=== PATIENT | female | born 1995 | race Caucasian/White ===

== ENCOUNTER 2017-03-07 15:25 | Inpatient (IN) | payer MEDICAID ==
[~2017-03-07] VITALS: Ht 161.3 cm; Wt 66.3 kg
--- NOTE | ~2017-03-07 | OR ---
PATIENT'S NAME: LIBBY CACERES [facility] AGE: 22 Y [address] ROOM: [place] [address] LOCATION: GO ADMIT DATE: 03/07/2017 OR/Procedure Report DISCHARGE DATE: FAMILY PHYSICIAN: Chelsea Aguirre MD ATTENDING PHYSICIAN: Chelsea Aguirre SURGEON: Ana Frausto MD ELEMENTARY EDUCATION TUTOR: Chelsea Aguirre MD. DATE OF PROCEDURE: 03/07/2017 PREOPERATIVE DIAGNOSES: 1. Intrauterine at 36 weeks. 2. Labor. 3. Prior section. POSTOPERATIVE DIAGNOSES: 1. Intrauterine at 36 weeks. 2. Labor. 3. Prior section. PROCEDURE: Repeat low transverse section. ANESTHESIA: Spinal. ESTIMATED BLOOD LOSS: 500 mL. COMPLICATIONS: None. DESCRIPTION OF PROCEDURE: The patient was taken to the operating room and placed under spinal anesthetic. She was prepped and draped in the usual sterile standard fashion. A Pfannenstiel skin incision was made with the knife and carried down to the level of fascia. The fascia was nicked in the midline. The incision was carried out laterally. The fascia was sharply and bluntly dissected from the underlying rectus muscles. The peritoneum was opened sharply and incised and stretched. The bladder blade was placed. The bladder reflection is taken down sharply and placed behind the bladder blade. A low transverse uterine incision was made with a knife and carried out laterally with the hemming and tacking machine operator's fingers. The bag of water was ruptured and found to be clear. The vertex was delivered over the uterine incision. There is some difficulty just getting past the fascial scarring. Shoulders and body are delivered. Baby boy lets out a spontaneous cry. His cord was doubly clamped and cut. He was handed off to the warmer. A 3-vessel cord was noted. Venous cord blood samples collected. Placenta delivered manually and intact. The uterus was exteriorized. Tubes and ovaries looked normal. The uterine incision was closed in a running locking stitch of 0 chromic. A second imbricating stitch was performed. Peritoneum was closed with 2-0 Vicryl, 0 PATIENT'S NAME: LIBBY CACERES [facility] AGE: 22 Y [address] ROOM: [place] [address] LOCATION: [facility] ADMIT DATE: 03/07/2017 OR/Procedure Report DISCHARGE DATE: FAMILY PHYSICIAN: Chelsea Aguirre MD ATTENDING PHYSICIAN: Chelsea Aguirre Vicryl was used to close the fascia, and 4-0 Vicryl was used to close the skin. Steri-Strips and benzoin were placed. The patient tolerated the procedure well and went to recovery in stable condition. ANA FRAUSTO MD KHP/modl /[id number] P d: 03/08/17 0327 t: 03/15/17 0504, OPERATIVE SUMMARY
--- NOTE | ~2017-03-07 | DS ---
PATIENT'S NAME: LIBBY CACERES [facility] AGE: 22 Y [address] ROOM: [place] [address] LOCATION: GOBS ADMIT DATE: 03/07/2017 Discharge Summary DISCHARGE DATE: 03/10/2017 FAMILY PHYSICIAN: Chelsea Aguirre MD ATTENDING PHYSICIAN: Chelsea Aguirre HISTORY: This is a 22-year-old, 2, para 1, who presents at 36 weeks gestation with contractions. Per Dr. Aguirre's check, she changed from 0 to 1 cm. She is a repeat , so we will proceed with repeat section. HOSPITAL COURSE: The patient was taken to the operating room and a repeat low transverse section was performed. Following surgery, the patient did well. On postop day #1, she is up and around, her hemoglobin is stable. On postop day #2, the patient desires discharge. Will be sent home with Percocet and Motrin for pain. Precautions are reviewed. MD JORDAN POWERP/modl /[id number] d: 03/15/17 0556 t: 04/10/17 0857, DISCHARGE SUMMARY
--- NOTE | ~2017-03-07 | CON ---
PATIENT'S NAME: LIBBY CACERES [facility] AGE: 22 Y [address] ROOM: [facility] [place], [place] [address] LOCATION: [facility] ADMIT DATE: 03/07/2017 Consultation DISCHARGE DATE: FAMILY PHYSICIAN: Chelsea Aguirre MD ATTENDING PHYSICIAN: Chelsea Aguirre REFERRING PHYSICIAN: Ana Frausto MD This is a 22-year-old 2, para 1 who presents with contractions at 36 weeks plus days. She had a prior section. Per Dr. Aguirre's check and evaluation, she was belén and she changed from [address] Aguirre felt it was appropriate to move ahead with section for labor and changing cervix. I discussed risks and benefits of the section with the patient including risks of prematurity. Consents had already been signed in the office with Dr. Wheatley. ANA FRAUSTO MD KHP/modl /[id number] d: 03/08/17316 t: 03/15/17 0501, CONSULTATION REPORT
[2017-03-07] MEDS ORDERED: VALTREX1000 MG PO (17:21)
[2017-03-07] MEDS ORDERED: ZOVIRAX200 MG PO (17:22)
[2017-03-07] MEDS ORDERED: PRENATAL 1+1)(P1 TAB PO (17:22)
[2017-03-07 18:55] LABS: BASOPHIL # 0.1 K/uL (0.0-0.2); BASOPHIL % 0.4 %; EOSINOPHIL % 0.2 %; HEMATOCRIT 32.1 % (33.0-46.0); HEMOGLOBIN 11.1 g/dL (11.0-15.0); IMMATURE GRANULOCYTE # 0.1 K/uL (0.0-0.3); IMMATURE GRANULOCYTE % 0.5 %; LYMPHOCYTE # 2.4 K/uL (0.8-4.0); LYMPHOCYTE % 18.2 %; MCH 31.5 pg (27.0-34.0); MCHC 34.6 gm/dL (32.0-36.5); MCV 91.2 fl (83.0-98.0); MONOCYTE # 0.7 K/uL (0.0-1.0); MONOCYTE % 5.4 %; MPV 11.2 fl (9.4-12.4); NEUTROPHIL # (ANC) 9.8 K/uL (1.8-7.8); NEUTROPHIL % 75.3 %; NRBC % 0 /100WBC (0-0.00); PLATELET COUNT 144 K/uL (150-450); RBC 3.52 M/uL (3.50-5.00); RDW-CV 13.1 % (11.9-14.6)
[2017-03-08 05:04] LABS: BASOPHIL % 0.2 %; HEMATOCRIT 28.6 % (33.0-46.0); HEMOGLOBIN 9.9 g/dL (11.0-15.0); IMMATURE GRANULOCYTE # 0.2 K/uL (0.0-0.3); IMMATURE GRANULOCYTE % 0.8 %; LYMPHOCYTE # 1.7 K/uL (0.8-4.0); LYMPHOCYTE % 8.9 %; MCH 31.7 pg (27.0-34.0); MCHC 34.6 gm/dL (32.0-36.5); MCV 91.7 fl (83.0-98.0); MONOCYTE # 0.8 K/uL (0.0-1.0); MONOCYTE % 3.9 %; MPV 11.2 fl (9.4-12.4); NEUTROPHIL # (ANC) 16.4 K/uL (1.8-7.8); NEUTROPHIL % 86.2 %; NRBC % 0 /100WBC (0-0.00); PLATELET COUNT 159 K/uL (150-450); RBC 3.12 M/uL (3.50-5.00)
[2017-03-08 05:08] LABS: WBC 19.1 K/uL (4.0-11.0)
--- NOTE | 2017-03-08 05:55 | NUR ---
Significant Event: VSS. pecocet last given at 0600; last dose of toradol due at 0930. andrews removed but has not voided since Follow up:
--- NOTE | 2017-03-08 18:00 | NUR ---
03/08/17 1800 Vss,Low abd. inc. Intact w/ suture and steri. No flatus. Infant well.
--- NOTE | 2017-03-09 06:07 | NUR ---
VSS. Pain rating 4. Last had Percocet at 0230. Fundus at the umbilicus. Firm and midline. Small flow. Nipples tender. Has Lanolin at bedside and hydrogel pads in fridge. Incision looks good with sutures and steri strips. Ambulates to bathroom and in room. Voiding in good amounts. Passing gas now.
--- NOTE | 2017-03-09 17:49 | NUR ---
03/09/17 1745 [facility] [employer]. inc. intact. Old dry drainage on L) of incision. Last Josafat @ 6584.
[2017-03-10] MEDS ORDERED: ACETAMINOPHEN325 MG PO (06:57)
[2017-03-10] MEDS ORDERED: PERCOCET 5-3251 EACH PO (09:39)
[2017-03-10] MEDS ORDERED: MOTRIN800 MG PO (09:39)
== END 2017-03-10 13:25 | disposition disaster alternative care site (69) | DRG 765 ==
LOC: GOBS 15:25
PROVIDERS: ADMIT Family Medicine
PROC: 10D00Z1 Extraction of Products of Conception, Low, Open Approach (ICD-10-PCS; principal; 2017-03-07)
DX: O60.14X0 Preterm labor third trimester with preterm delivery third trimester, not applicable or unspecified (principal); O98.52 Other viral diseases complicating childbirth; D62 Acute posthemorrhagic anemia; O99.824 Streptococcus B carrier state complicating childbirth; O34.211 Maternal care for low transverse scar from previous cesarean delivery; B00.9 Herpesviral infection, unspecified; O90.81 Anemia of the puerperium; Z37.0 Single live birth; Z3A.36 36 weeks gestation of pregnancy
CPT/HCPCS: J0295; J1885; J2001; J2590; J7040; J7120